=== PATIENT | male | born 1970 | race Caucasian/White ===

== ENCOUNTER 2019-02-23 15:04 | Emergency (ER) | payer SELFPAY ==
[2019-02-23 15:50] VITALS: BP 137/87
--- NOTE | 2019-02-23 16:15 | ED ---
Lower Extremity - HPI Summary HPI Summary: 49 yr old with bilateral lower extremity edema, and pain. Left leg worse than the right leg. The patient has had leg edema that has gotten progressively worse for the past few years. The patient has pain now along the medial left leg with edema and tenderness over the medial leg. He has had increased abdominal girth as well and notices the right side of his upper abdomen seems more swollen now. He denies SOB, Chest pain, nausea, vomiting. He denies alcohol use. He states he stands for about 18 hours a day working. - History of Current Complaint Chief Complaint: UCLowerExtremity Stated Complaint: LEFT LEG PAIN/SWELLING Time Seen by Provider: 02/23/19 15:55 Pain Intensity: 4 - Allergies/Home Medications Allergies/Adverse Reactions: Allergies Allergy/AdvReac Type Severity Reaction Status Date / Time No Known Allergies Allergy Verified 02/23/19 15:50 PMH/Surg Hx/FS Hx/Imm Hx Infectious Disease History: No Infectious Disease History: Denies: Traveled Outside the in Last 30 Days - Family History Known Family History: Positive: None - Social History Occupation: Employed Full-time Alcohol Use: Rare Substance Use Type: Reports: Marijuana Smoking Status (MU): Heavy Every Day Tobacco Smoker Review of Systems Negative: Fever, Chills Positive: Edema - bilateral legs. All Other Systems Reviewed And Are Negative: Yes Physical Exam Triage Information Reviewed: Yes Vital Signs On Initial Exam: Initial Vitals Temp Pulse Resp BP Pulse Ox 98.3 F 83 18 137/87 97 02/23/19 15:46 02/23/19 15:46 02/23/19 15:46 02/23/19 15:46 02/23/19 15:46 Vital Signs Reviewed: Yes Appearance: Positive: Well-Appearing, No Pain Distress Skin: Positive: Warm Head/Face: Positive: Normal Head/Face Inspection Eyes: Positive: EOMI, SHARAD ENT: Positive: Normal ENT inspection Neck: Positive: Nontender Respiratory/Lung Sounds: Positive: Clear to Auscultation, Breath Sounds Present Cardiovascular: Positive: RRR. Negative: Murmur Abdomen Description: Positive: Other: - abdomen is enlarged with liver palpable below right costal margin. Non tender. Musculoskeletal: Positive: Strength/ROM Intact, Other - bilateral edema lower extremities with tenderness along the left saphenous vein from ankle up to knee level. The left leg is significantly larger than the left. Neurological: Positive: Sensory/Motor Intact, Alert, Oriented to Person Place, Time, CN Intact II-III, Speech Normal Psychiatric: Positive: Normal Diagnostics - Vital Signs Vital Signs Temp Pulse Resp BP Pulse Ox 02/23/19 15:46 98.3 F 83 18 137/87 97 - Laboratory Lab Statement: Any lab studies that have been ordered have been reviewed, and results considered in the medical decision making process. Lower Extremity Course/Dx - Course Course Of Treatment: 49 yr old with significant leg edema and increased abdominal size. He was advised to go to the ER for work up. He signed out AMA and refused transfer. - Diagnoses Provider Diagnoses: Edema of both lower extremities Discharge ED - Sign-Out/Discharge Documenting (check all that apply): Patient Departure All imaging exams completed and their final reports reviewed: No Studies - Discharge Plan Condition: Good Disposition: AGAINST MEDICAL ADVICE Referrals: No Primary Care Phys,NOPCP [Primary Care Provider] - - Billing Disposition and Condition Condition: GOOD Disposition: Against Medical Advice
== END 2019-02-23 16:14 | disposition left against medical advice (07) ==
LOC: UCCORT 15:04
DX: R60.0 Localized edema (principal); R19.8 Other specified symptoms and signs involving the digestive system and abdomen; F17.290 Nicotine dependence, other tobacco product, uncomplicated
CPT/HCPCS: 99202; G0463